=== PATIENT | female | born 1965 | race Caucasian/White ===

== ENCOUNTER 2016-10-22 08:07 | Day surgery (SDC) | payer MEDICARE ==
[~2016-10-22 08:07] MED LIST: PREMYELOGRAM MEDICATION REVIEW 1 EACH MISC PO ONE
[2016-10-22 08:28] VITALS: TEMP 97.9
[2016-10-22] MEDS ORDERED: DIAZEPAM 5 MG TAB PO STA (08:29)
--- NOTE | 2016-10-22 10:03 | FL ---
EXAMINATION TYPE: FL myelogram 2 or more regions DATE OF EXAM: 10/22/2016 9:38 AM HISTORY: Lower extremity pain and numbness. Upper extremity pain and numbness. Informed consent was obtained and all the patient's questions were answered. The L3-L4 level was loc alized under fluoroscopy. Standard sterile technique was utilized as well as appropriate local anest hesia 1% Lidocaine and sodium bicarbonate. Spinal needle was introduced into the thecal sac under fl uoroscopic guidance and 13 mls of Omni 240 was injected. The patient tolerated the procedure well an d left the department in stable condition. CT cervical and lumbar myelography is to follow. IMPRESSION: Successful myelography with CT to follow
--- NOTE | 2016-10-22 10:14 | CT ---
EXAMINATION TYPE: CT cervical spine w con DATE OF EXAM: 10/22/2016 COMPARISON: NONE HISTORY: Cervicalgia CT DLP: 552.2 m[address] of the cervical spine was performed with bone and soft tissue window settings sub mitted. Coronal and sagittal reconstruction is obtained. There is reversal of the normal cervical lordosis which can be seen in patients with muscle spasticit y. C2-3: Within normal limits. C3-4: Mild degenerative disc space narrowing. Posterocentral disc bulge with mild effacement ventral thecal sac. Streak artifact from pedicular screws limits evaluation. No definite evidence for central stenosis. Degenerative change cervical apophyseal joints with mild right foraminal encroachment. C4-5: Changes of anterior cervical discectomy and fusion. Intervertebral spacer is well seated. Anter ior fixation plate is noted. Changes of decompressive laminectomy with pedicular screws. No evidence for recurrent or residual disease. No central stenosis identified. C5-6: Changes of cervical fusion. Decompressive laminectomy noted. Pedicular fixation screws in place . No evidence for recurrent or residual disease. No central stenosis or foraminal encroachment. C6-7: Mild degenerative disc space narrowing. Moderate ventral spondylosis. Mild posterior disc bulge . No evidence for disc herniation or stenosis. Foramina are patent bilaterally. C7-T1: Within normal limits IMPRESSION: 1. Extensive postsurgical change of cervical fusion and decompressive laminectomy extending from C4 t hrough C6. Posterior rods and pedicular screws are in place. Metallic streak artifact slightly limits evaluation. 2. Posterior disc bulging at C3-4 and C6-7 with mild effacement ventral thecal sac. No evidence for s tenosis or herniation.
--- NOTE | 2016-10-22 10:25 | CT ---
EXAMINATION TYPE: CT lumbar spine w con DATE OF EXAM: 10/22/2016 COMPARISON: NONE HISTORY: Back pain CT DLP: 597.6 mGycm CONTRAST: Post myelography CT of the lumbar spine is performed with IV Contrast, patient injected with 15-given in xray mL of Omnipaque 240. Bone and soft tissue window settings are submitted as well as coronal and sagittal reconstructions. T11-T12: Moderate degenerative disc space narrowing Schmorl node formation. Small right paracentral d isc protrusion mildly effaces the ventral thecal sac without central stenosis or cord contact. T12-L1: Within normal limits L1-L2: Normal disc space height. No disc herniation protrusion or central stenosis. No facet joint arthropathy. No evidence for foraminal encroachment. L2-L3: Moderate degenerative disc space narrowing. Moderate circumferential disc bulge with broad-bas ed subligamentous herniation. Effacement of the ventral thecal sac and mild central stenosis noted. M ild bilateral foraminal encroachment. L3-L4: Normal disc space height. No disc herniation protrusion or central stenosis. No facet joint arthropathy. No evidence for foraminal encroachment. L4-L5: Mild degenerative disc space narrowing. Broad-based right paracentral disc herniation effaces the ventral thecal sac. Right lateral recess stenosis suspected. No evidence for central stenosis. Bi lateral mild foraminal encroachment L5-S1: Changes of the fusion. Anterior fixation plate and screws in place. Intervertebral spacer note d. Decompressive laminectomy changes. Posterior hypertrophic change mildly effaces the ventral thecal sac. No evidence for recurrent or residual disease. Degenerative changes of the facet joints resulti ng in right greater than left foraminal encroachment. No paraspinal masses are identified. Lumbar segments are free if fracture. IMPRESSION: 1. Mild central stenosis at L2-3 with the circumferential disc bulge and broad-based with subligament ous herniation difficult to exclude. 2. Broad-based right paracentral disc herniation L4-5. 3. Small disc protrusion paracentrally and to the right at the T11-T12
[2016-10-22] MEDS ORDERED: ACETAMINOPHEN TAB 325 MG TAB PO PRN (11:06)
[2016-10-22] MEDS ORDERED: ACETAMINOPHEN TAB 500 MG TAB PO PRN (11:28)
[2016-10-22 13:01] VITALS: RESP 20
[2016-10-22 14:39] VITALS: PULSE 68
[2016-10-22 14:47] VITALS: BP 124/72
== END 2016-10-22 14:20 | disposition home or self-care (01) ==
LOC: RADPROMAIN 08:07
PROVIDERS: ATTEND Psychiatry & Neurology Neurology
DX: M50.223 Other cervical disc displacement at C6-C7 level (principal); M50.21 Other cervical disc displacement, high cervical region; Z98.1 Arthrodesis status; G89.28 Other chronic postprocedural pain; M50.30 Other cervical disc degeneration, unspecified cervical region; M54.16 Radiculopathy, lumbar region; M51.37 Other intervertebral disc degeneration, lumbosacral region; R26.9 Unspecified abnormalities of gait and mobility; E78.5 Hyperlipidemia, unspecified; I10 Essential (primary) hypertension; F41.9 Anxiety disorder, unspecified; F32.9 Major depressive disorder, single episode, unspecified
CPT/HCPCS: 62305; 72126; 72132; Q9966; 62284

== ENCOUNTER → 2018-07-11 | Outpatient (CLI) | payer MEDICARE ==
--- NOTE | 2018-07-11 13:23 | CT ---
EXAMINATION TYPE: CT lumbar spine wo con DATE OF EXAM: 07/11/2018 COMPARISON: 10/22/2016 HISTORY: 53-year-old female with low back and right hip pain, prior lumbar fusion, Lumbago TECHNIQUE: Contiguous axial scanning of the lumbar spine without IV contrast. Coronal and sagittal re constructions performed. CT DLP: 707.2 mGycm Automated exposure control for dose reduction was used. FINDINGS: Post surgical change of anterior L5-S1 fusion. There is also interbody fusion. Small amount of bone g raft material versus fragmented disc osteophyte complex encroaches onto the left paracentral ventral spinal canal, relatively similar to 10/22/2016. Vertebral body heights are preserved and alignment is maintained. Facet arthropathy lower lumbar spine and similar moderate degenerative disc disease at L2-L3 with dis c height loss and diffuse disc bulge mildly narrowing the spinal canal. Disc bulge at L4-L5, above the fusion, is larger impressing into the ventral thecal sac but not causi ng significant spinal canal stenosis by CT. There is a moderate bony neuroforaminal narrowing on the right that appears relatively similar prior. Mild overall bony neural foraminal narrowing on the left also relatively similar. No prevertebral or paravertebral soft tissue abnormality seen. IMPRESSION: 1. STATUS POST L5-S1 ANTERIOR FUSION. ADDITIONAL INTERBODY FUSION. SMALL AMOUNT OF BONE GRAFT MATERIA L VERSUS FRAGMENTED DISC OSTEOPHYTE COMPLEX ENCROACHES ONTO THE LEFT PARACENTRAL VENTRAL SPINAL CANAL , SIMILAR TO 10/22/2016. NO SPINAL CANAL STENOSIS. SIMILAR MODERATE BONY NEUROFORAMINAL NARROWING ON T HE RIGHT AND MILD ON THE LEFT AT THIS LEVEL. 2. ABOVE THE FUSION AT L4-L5, THERE IS PROGRESSIVE DISC BULGING. HOWEVER, THIS DOES NOT CONTRIBUTE TO ANY SIGNIFICANT SPINAL CANAL STENOSIS BY CT. NO SIGNIFICANT NEURAL FORAMINAL STENOSIS. 3. SIMILAR MODERATE DEGENERATIVE DISC DISEASE AT L2-L3 WITH BULGING DISC MILDLY NARROWING THE SPINAL CANAL.
--- NOTE | 2018-07-11 13:29 | CT ---
EXAMINATION TYPE: CT cervical spine wo con DATE OF EXAM: 07/11/2018 COMPARISON: 10/22/2016 HISTORY: 53-year-old female headache, numbness and tingling of fingers, Cervicalgia TECHNIQUE: Contiguous axial scanning of the cervical spine without IV contrast. Coronal and sagittal reconstructions performed. CT DLP: 562.7 mGycm Automated exposure control for dose reduction was used. FINDINGS: No cranial cervical junction abnormality, predental space widening, or prevertebral soft tissue swell ing. Prior C4-C6 ACDF with decompressive laminectomies at this level. Posterior fusion hardware extends fr om C3 through C6 levels. Residual posterior osteophytic ridging remains at the ACDF levels as mention ed previously causing minimal encroachment of the ventral aspect of the spinal canal. Alignment is maintained. Mild degenerative disc disease C3-C4 and C6-C7 redemonstrated. At C3-C4, there is moderate right and mild left neuroforaminal stenosis. At C4-C5 and C5-C6, no significant bony neuroforaminal stenosis is identified. At C6-C7, there is mild neuroforaminal narrowing on both sides. IMPRESSION: 1. PRIOR C4-C6 ACDF, DECOMPRESSIVE LAMINECTOMIES AT THESE LEVELS, AND POSTERIOR FUSION HARDWARE FROM C3-C6. 2. MILD DEGENERATIVE DISC DISEASE C3-C4 AND C6-C7, ABOVE AND BELOW THE FUSION. NO MALALIGNMENT. 3. AT C3-C4, THERE IS MODERATE RIGHT AND MILD LEFT NEURAL FORAMINAL STENOSIS. AT C6-C7, THERE IS MILD BILATERAL NEUROFORAMINAL STENOSIS.
== END | disposition home or self-care (01) ==
LOC: RADCTMAIN 12:23
PROVIDERS: ATTEND Psychiatry & Neurology Pain Medicine
DX: M48.02 Spinal stenosis, cervical region (principal); M48.061 Spinal stenosis, lumbar region without neurogenic claudication; M51.26 Other intervertebral disc displacement, lumbar region; M50.31 Other cervical disc degeneration, high cervical region; M51.36 Other intervertebral disc degeneration, lumbar region; Z98.1 Arthrodesis status
CPT/HCPCS: 72125; 72131

== ENCOUNTER → 2020-01-17 | Outpatient (CLI) | payer MEDICARE ==
--- NOTE | 2020-01-17 11:03 | CT ---
EXAMINATION TYPE: CT lumbar spine wo con DATE OF EXAM: 01/17/2020 COMPARISON: 07/11/2018 HISTORY: Back pain CT DLP: 759.6 mGycm CONTRAST: None TECHNIQUE: CT of the lumbar spine is performed on a spiral scan at 3 mm thick sections. Reconstructed images are performed in the coronal and sagittal planes. FINDINGS: T12-L1: No focal disc herniation or significant disc bulge is evident. No spinal canal stenosis or neural foraminal stenosis is present. L1-L2: No focal disc herniation or significant disc bulge is evident. No spinal canal stenosis or n eural foraminal stenosis is present L2-L3: Broad-based disc bulge has mild anterior thecal sac contact. No AP spinal canal stenosis is pr esent. Neural foramen are patent. L3-L4: No focal disc herniation or significant disc bulge is evident. No spinal canal stenosis or n eural foraminal stenosis is present. Facet hypertrophy is present. L4-L5: Mild disc bulge is present with anterior thecal sac compression. Ligamentum flavum laxity is p resent with posterior lateral thecal sac compression. Mild canal narrowing may be present. Neural for amen are patent. L5-S1: Degenerative disc changes are present. Facet hypertrophy is present. Right posterior lateral t hecal sac compression is present. There is severe right foraminal narrowing. Moderate left foraminal narrowing is present. Endplate spurring at L5-S1 is evident. No AP spinal canal stenosis is present. Vertebral alignment appears normal. Anterior lumbar fusion at L5-S1 is evident. Comparison: The above findings appear to be stable from the earlier exam of 07/11/2018. IMPRESSION: 1. Mild disc bulging and ligamentum flavum laxity L4-5 causes mild canal narrowing. 2. Severe right foraminal narrowing L5-S1. Correlate with the radicular symptoms. 3. Mild broad-based disc bulging L2-3 without stenosis
== END | disposition home or self-care (01) ==
LOC: RADCTMAIN 08:21
PROVIDERS: ATTEND Psychiatry & Neurology Neurology
DX: M48.061 Spinal stenosis, lumbar region without neurogenic claudication (principal); M48.07 Spinal stenosis, lumbosacral region; M51.16 Intervertebral disc disorders with radiculopathy, lumbar region; M24.29 Disorder of ligament, other specified site
CPT/HCPCS: 72131